=== PATIENT | male | born 1990 | race Caucasian/White ===

== ENCOUNTER 2018-12-13 16:21 | Emergency (ER) | payer SELFPAY ==
[2018-12-13 16:37] VITALS: BP 145/85; PULSE 76; TEMP 98.8; BMI 23.0
[2018-12-13] MEDS ORDERED: DIPHTH,PERTUSS(ACELL),TET 0.5 ML DISP.SYRIN IM ONE ×2 (16:37→16:42)
--- NOTE | 2018-12-13 16:38 | PDOC ---
Rapid Medical Evaluation Chief Complaint: Laceration Time Seen by Provider: 12/13/18 16:35 Medical Evaluation: Allergies Allergy/AdvReac Type Severity Reaction Status Date / Time No Known Allergies Allergy Verified 09/04/15 13:33 12/13/18 16:36 I have performed a brief in-person evaluation of this patient. The patient presents with a chief complaint of: left index finger lac over PIP Pertinent physical exam findings: FROM to finger/ I have ordered the following: Boostrix The patient will proceed to the ED for further evaluation. 12/13/18 16:37 Discharge Disposition - Diagnosis Laceration - Referrals - Patient Instructions - Post Discharge Activity
--- NOTE | 2018-12-13 17:10 | PDOC ---
History of Present Illness - General Chief Complaint: Laceration Stated Complaint: SUTURE/STAPLE REMOVAL Time Seen by Provider: 12/13/18 16:35 - History of Present Illness Initial Comments: 12/13/18 17:08 28-year-old male without comorbidities presents for evaluation of a laceration on his left second finger. He states he was [place] a flea market while examining immunized and he accidentally lacerated his finger. He is not current on tetanus. Past History - Past Medical History Allergies/Adverse Reactions: Allergies Allergy/AdvReac Type Severity Reaction Status Date / Time No Known Allergies Allergy Verified 12/13/18 16:37 Home Medications: Ambulatory Orders Ascorbic Acid [Vitamin C -] 500 mg PO DAILY 09/04/15 COPD: No Diabetes: No - Suicide/Smoking/Psychosocial Hx Smoking History: Never smoked Hx Alcohol Use: No Drug/Substance Use Hx: No Review of Systems - Review of Systems Musculoskeletal: Yes: See HPI *Physical Exam - Vital Signs Last Vital Signs Temp Pulse Resp BP Pulse Ox 98.8 F 76 16 145/85 99 12/13/18 16:33 12/13/18 16:33 12/13/18 16:33 12/13/18 16:33 12/13/18 16:33 - Physical Exam Comments: 12/13/18 17:08 There is approximately a 1 cm laceration on the dorsal aspect of the left second finger on the skin overlying the PIPJ with exposing subcutaneous fat. There is no exposed tendon flexor and extensor tendon functions work. There are no gross sensory or motor deficits. ED Treatment Course - Medications Given in the ED: ED Medications Discontinued Medications Generic Name Dose Route Start Last Admin Trade Name Max PRN Reason Stop Dose Admin Diphtheria/Tetanus/Acell Pertussis 0.5 ml 12/13/18 16:37 12/13/18 16:45 Boostrix - IM 12/13/18 16:38 0.5 ml ONCE ONE Administration Medical Decision Making - Medical Decision Making 12/13/18 17:07 Under aseptic technique 6 mL once percent lidocaine was used for digital block this was tolerated well the wound was copiously irrigated and explored to its base in a bloodless field without any identification of foreign body. Edges were approximated with 3 simple 4-0 Prolene sutures a dry sterile dressing was placed this was tolerated well. *DC/Admit/Observation/Transfer Diagnosis at time of Disposition: Laceration - Discharge Dispostion Disposition: HOME Condition at time of disposition: Stable Decision to Admit order: No - Referrals Referrals: Richard Pretty MD [Staff Physician] - - Patient Instructions Printed Discharge Instructions: DI for Laceration Repair Additional Instructions: Keep the wound clean and dry and the dressing on for the next 48 hours. After 48 hours you may remove the dressing and wash the area with soap and water and leave it open to air. You must cover with a Band-Aid need to work. Do not apply any ointments abscesses bacitracin or Neosporin. Return to the emergency room in 10 days for suture removal, sooner if problems develop such as increasing pain redness or swelling. He may also follow-up with hand surgery for further evaluation and treatment options. Tylenol and Motrin as directed for pain. Do not: A swimming pool or take a bath or submersion hand in water until the wound becomes a scar - Post Discharge Activity
== END 2018-12-13 17:09 | disposition home or self-care (01) ==
LOC: JERFT 16:21
PROC: 3E0234Z Introduction of Serum, Toxoid and Vaccine into Muscle, Percutaneous Approach (ICD-10-PCS; principal; 2018-12-13)
PROC: 0JQK0ZZ Repair Left Hand Subcutaneous Tissue and Fascia, Open Approach (ICD-10-PCS; 2018-12-13)
DX: S61.211A Laceration without foreign body of left index finger without damage to nail, initial encounter (principal); W26.0XXA Contact with knife, initial encounter; Y93.89 Activity, other specified; Y92.59 Other trade areas as the place of occurrence of the external cause; Y99.8 Other external cause status
CPT/HCPCS: 90715; 99281-25

== ENCOUNTER 2019-01-10 13:24 | Emergency (ER) | payer SELFPAY ==
[2019-01-10 13:39] VITALS: BP 129/89; PULSE 76; TEMP 98; BMI 25.1
--- NOTE | 2019-01-10 13:41 | PDOC ---
Rapid Medical Evaluation Chief Complaint: Laceration Time Seen by Provider: 01/10/19 13:37 Medical Evaluation: Allergies Allergy/AdvReac Type Severity Reaction Status Date / Time No Known Allergies Allergy Verified 01/10/19 13:36 01/10/19 13:37 I have performed a brief in-person evaluation of this patient. The patient presents with a chief complaint of: laceration to phalange of left ring finger with a knife an hour ago. Last tetanus a week ago Pertinent physical exam findings: 2cm linear laceration to dorsal aspect of middle phalanage of left ring finger with no bleeding. FROM of finger I have ordered the following: nothing The patient will proceed to the ED for further evaluation. Discharge Disposition - Diagnosis Finger laceration Qualifiers: Encounter type: initial encounter Finger: ring finger Damage to nail status: without damage Foreign body presence: without foreign body Laterality: left Qualified Code(s): S61.215A - Laceration without foreign body of left ring finger without damage to nail, initial encounter - Discharge Dispostion Condition at time of disposition: Stable - Referrals - Patient Instructions - Post Discharge Activity
--- NOTE | 2019-01-10 14:12 | PDOC ---
History of Present Illness - General Chief Complaint: Laceration Stated Complaint: LT HAND INJURY Time Seen by Provider: 01/10/19 13:37 - History of Present Illness Initial Comments: 01/10/19 14:04 28 year old male without comorbidities presents for laceration on his left fourth finger which occurred at home while working with a knife. He is current on tetanus. Past History - Past Medical History Allergies/Adverse Reactions: Allergies Allergy/AdvReac Type Severity Reaction Status Date / Time No Known Allergies Allergy Verified 01/10/19 13:36 Home Medications: Ambulatory Orders Ascorbic Acid [Vitamin C -] 500 mg PO DAILY 09/04/15 COPD: No Diabetes: No - Immunization History Immunization Up to Date: Yes - Suicide/Smoking/Psychosocial Hx Smoking History: Never smoked Hx Alcohol Use: No Drug/Substance Use Hx: No Review of Systems - Review of Systems Musculoskeletal: Yes: See HPI *Physical Exam - Vital Signs Last Vital Signs Temp Pulse Resp BP Pulse Ox 98.0 F 76 18 129/89 98 01/10/19 13:38 01/10/19 13:38 01/10/19 13:38 01/10/19 13:38 01/10/19 13:38 - Physical Exam Comments: 01/10/19 14:05 There is a approximately 1 cm laceration on the dorsum of the left fourth finger on the skin overlying the PIPJ. There is a flap and the edges can easily be approximated. There is no exposed tendon. Neurovascularly intact no gross sensory motor deficits. Medical Decision Making - Medical Decision Making 01/10/19 14:06 Under aseptic technique 6 mL of 1% lidocaine without epinephrine was used for digital block. This was tolerated well the wound was copiously irrigated and explored to its in a bloodless field 3 4-0 nylon sutures were used to approximate the edges in a simple interrupted fashion this was tolerated well a dry sterile dressing was placed. *DC/Admit/Observation/Transfer Diagnosis at time of Disposition: Finger laceration Qualifiers: Encounter type: initial encounter Finger: ring finger Damage to nail status: without damage Foreign body presence: without foreign body Laterality: left Qualified Code(s): S61.215A - Laceration without foreign body of left ring finger without damage to nail, initial encounter - Discharge Dispostion Disposition: HOME Condition at time of disposition: Stable Decision to Admit order: No - Referrals Referrals: Richard Pretty MD [Staff Physician] - - Patient Instructions Printed Discharge Instructions: DI for Laceration Repair Additional Instructions: As he did dressing on for the next 48 hours. After 48 hours he may remove the dressing and wash the area with soap and water and leave it open to air. Cover the area with a dry sterile dressing such as a Band-Aid if you need to work. Do not apply any ointments such as Neosporin or bacitracin. Soap and water 2-3 times a day to keep the area clean. Again leave it open to air. Return to the emergency room in 10 days for suture removal or follow-up with hand surgery in 1 -2 days. Return to the emergency room sooner should there be any indication of infection such as redness swelling drainage or increasing pain in the area. - Post Discharge Activity
== END 2019-01-10 14:22 | disposition home or self-care (01) ==
LOC: JERFT 13:24
PROC: 0HQGXZZ Repair Left Hand Skin, External Approach (ICD-10-PCS; principal; 2019-01-10)
DX: S61.215A Laceration without foreign body of left ring finger without damage to nail, initial encounter (principal); W26.0XXA Contact with knife, initial encounter; Y93.89 Activity, other specified; Y92.038 Other place in apartment as the place of occurrence of the external cause; Y99.8 Other external cause status
CPT/HCPCS: 99281-25